=== PATIENT | male | born 1965 | race African-American/Black ===

== ENCOUNTER 2018-01-31 19:43 | Emergency (ER) | payer OTHER ==
[~2018-01-31] VITALS: Ht 180.3 cm; Wt 99.8 kg
[~2018-01-31 19:43] MED LIST: ALBUTEROL SULF8.5 GM INH; ASPIRIN EC325 MG ORAL; AZITHROMYCIN250 MG ORAL; BENAZEPRIL HCL10 MG PO; CHLORTHALIDONE25 MG PO; HYDROCODON-ACE1 EA15 ORAL; MECLIZINE HCL25 MG PO; NORCO 5-325 TA1 EACH ORAL; PREDNISONE20 MG ORAL; TYLENOL650 MG/20. ORAL; VALIUM2 MG ORAL; ZOCOR20 M1 ORAL
[2018-01-31 19:55] VITALS: BP 158/73
[2018-01-31] MEDS ORDERED: NORCO 5-325 TA1 EACH ORAL (21:04)
--- NOTE | 2018-01-31 21:08 | Emergency Room Report ---
History of Present Illness General Chief Complaint: Upper Extremity Injury Source: Patient Present Illness HPI Patient presents emergency department today complaining of a abrasion to left upper extremity. Differential considerations include laceration, abrasion, deep tissue injury. Patient exam is consistent with the patient. This does not require repair. Patient's wound was dressed. Patient was given a tetanus update. Given that patient did not hit his head did not show any radiographic studies are indicated this time. Close outpatient followup. Recommended wound care changes.Patient is advised to follow up with primary doctor in 2-3 days and return the emergency room for any worsening symptoms and as needed. Allergies: Coded Allergies: No Known Allergies (Unverified , 12/19/12) Patient History Past Medical History: HTN, asthma Past Surgical History: none Pertinent Family History: none Social History: Denies: smoking, alcohol use, drug use Reviewed Nursing Documentation: PMH: Agreed, PSxH: Agreed Nursing Documentation-PMH Hx Hypertension: Yes Hx Asthma: Yes Hx Cancer: No Hx Gastrointestinal Problems: No Hx Dialysis: No - kidney sx (30 % removed) Hx Neurological Problems: No Review of Systems All Other Systems: negative except mentioned in HPI Physical Exam Vital Signs Date Time Temp Pulse Resp B/P (MAP) Pulse Ox O2 Delivery O2 Flow Rate FiO2 01/31/18 19:53 99.0 72 18 158/73 99 Room Air 99.0 Sp02 EP Interpretation: reviewed, normal General Appearance: normal inspection, well appearing, no apparent distress, alert Head: atraumatic Eyes: bilateral eye normal inspection ENT: normal ENT inspection, hearing grossly normal, normal voice Neck: normal inspection, full range of motion, supple, no bony tend Respiratory: normal inspection, lungs clear, normal breath sounds, no respiratory distress, no retraction, no wheezing Cardiovascular #1: regular rate, rhythm, no edema Gastrointestinal: normal inspection, normal bowel sounds, non tender, soft, no guarding, no hernia Genitourinary: no CVA tenderness Musculoskeletal: back normal, swelling - left elbow Neurologic: normal inspection, alert, responsive, speech normal Psychiatric: normal inspection, judgement/insight normal, mood/affect normal Skin: normal inspection, normal color, no rash Medical Decision Making Diagnostic Impression: Primary Impression: Bursitis ER Course Patient returns emergency department today complaining left elbow pain. Differential considerations include fracture dislocation strain versus bursitis. Patient exam is consistent with bursitis. At the patient's insistence I tried aspirated the bursa but was unsuccessful. Procedure note: Patient's left elbow was prepped in a sterile manner. Using an 18-gauge needle inserted into the area of maximal swelling and try to aspirate the bursa. I wasn't able to aspirate any fluid. Therefore further attempts were abandoned the needle was removed the wound was dressed. Patient tolerated procedure without difficulty. There is no complications associated procedure. Given that there is no evidence of any fluid in the first I feel the patient's personal was likely just irritated with evidence of inflammation. Patient states that he cannot take anti-inflammatory. This is elbow and given pain medications. Procedure note: Jose bandage application. Jose bandage was applied to patient's left elbow. Adequate a splint patient's left elbow. There is no competitions associated procedure patient procedure well difficulty. Patient was neurovascular intact after application Jose bandage. Patient was given information about bursitis I recommend return emergency room for any worsening symptoms and as needed. Last Vital Signs Date Time Temp Pulse Resp B/P (MAP) Pulse Ox O2 Delivery O2 Flow Rate FiO2 01/31/18 19:55 99.0 72 18 158/73 99 Room Air 99.0 Status: improved Disposition: HOME, SELF-CARE Condition: Stable ABIMBOLA SERRANO M.D. Jan 31, 2018 21:08
[2018-01-31] MEDS ORDERED: oxyCODONE HCL/Acetaminophen 5/325mg ORAL ONE (21:15)
[2018-01-31 21:20] VITALS: BP 158/73
== END 2018-01-31 21:20 | disposition home or self-care (01) ==
LOC: EMR 20:15
DX: M70.32 Other bursitis of elbow, left elbow (principal); J45.909 Unspecified asthma, uncomplicated; I10 Essential (primary) hypertension
CPT/HCPCS: 10060; 29260; 99283

== ENCOUNTER 2018-03-01 21:19 | Emergency (ER) | payer OTHER ==
[~2018-03-01] VITALS: Ht 180.3 cm; Wt 104.3 kg
[2018-03-01 21:30] VITALS: BP 152/74
[2018-03-01] MEDS ORDERED: IBUPROFEN600 MG ORAL (21:41)
[2018-03-01] MEDS ORDERED: HYDROCODON-ACE1 EA15 ORAL (21:41)
--- NOTE | 2018-03-01 21:41 | Emergency Room Report ---
History of Present Illness General Chief Complaint: Pain Source: Patient, Medical Record Present Illness HPI Is a 52-year-old male with history of arthritis. He had problem with his left knee before that require drainage. He presents with right knee pain and swelling for last 3 days but no trauma. No nausea no vomiting. No fever or chills. He thought that he may have gout. Better with crutches. Better with [place]. Pain is 9 out of 10. Allergies: Coded Allergies: No Known Allergies (Unverified , 12/19/12) Patient History Past Medical History: see triage record, old chart reviewed Past Surgical History: none Pertinent Family History: none Social History: Denies: smoking Immunizations: other Reviewed Nursing Documentation: PMH: Agreed; PSxH: Agreed Nursing Documentation-PMH Hx Hypertension: Yes Hx Asthma: Yes Hx Cancer: No Hx Gastrointestinal Problems: No Hx Dialysis: No - kidney sx (30 % removed) Hx Neurological Problems: No Review of Systems Eye: Denies: eye pain, blurred vision ENT: Denies: ear pain, nose congestion, throat swelling Respiratory: Denies: cough, shortness of breath Cardiovascular: Denies: chest pain, palpitations Gastrointestinal: Denies: abdominal pain, diarrhea, nausea, vomiting Musculoskeletal: Reports: joint pain, joint swelling; Denies: back pain Skin: Denies: rash Neurological: Denies: headache, numbness Endocrine: Denies: increased thirst, increased urine Hematologic/Lymphatic: Denies: easy bruising All Other Systems: negative except mentioned in HPI Physical Exam Vital Signs Date Time Temp Pulse Resp B/P (MAP) Pulse Ox O2 Delivery O2 Flow Rate FiO2 03/01/18 21:23 98.2 90 18 152/74 96 Room Air 98.2 vitals with high blood pressure Sp02 EP Interpretation: reviewed, normal General Appearance: well appearing, no apparent distress, alert Head: normocephalic, atraumatic Eyes: bilateral eye PERRL, bilateral eye EOMI ENT: hearing grossly normal, normal pharynx Neck: full range of motion, supple, no meningismus Respiratory: chest non-tender, lungs clear, normal breath sounds Cardiovascular #1: regular rate, rhythm, no murmur Gastrointestinal: normal bowel sounds, non tender, no mass, no organomegaly, no bruit, non-distended Musculoskeletal: back normal, swelling - Right knee with effusion and tenderness along the collateral ligaments area knee is stable. Sensation normal. No warmth or redness. Psychiatric: mood/affect normal Skin: warm/dry Procedures Splinting Splinting : Consent: Verbal Location: Right knee Pre-Made Type: TRISTAN wrap Pre-Proc Neuro Vasc Exam: normal Post-Proc Neuro Vasc Exam: normal Patient Tolerated: Well Complications: None Medical Decision Making Diagnostic Impression: Primary Impression: Right knee DJD Qualified Codes: M17.11 - Unilateral primary osteoarthritis, right knee Additional Impression: Effusion of knee joint right ER Course Patient with effusion of the right knee. This is most likely secondary to osteoarthritis/degenerative changes. There is no warmth or redness to indicate an infectious or inflammatory causes. I doubt this is gout or septic joint. We 'll discharge home. No trauma to warrant x-rays. If continue he may need an MRI. Last Vital Signs Date Time Temp Pulse Resp B/P (MAP) Pulse Ox O2 Delivery O2 Flow Rate FiO2 03/01/18 21:23 98.2 90 18 152/74 96 Room Air 98.2 Status: improved Disposition: HOME, SELF-CARE Condition: Stable Scripts Ibuprofen* (MOTRIN*) 600 Mg Tablet 600 MG ORAL THREE TIMES A DAY, #30 TAB 0 Refills Prov: PRITESH LOWE M.D. 03/01/18 Hydrocodone/Acetaminophen 5-325* (HYDROCODONE/ACETAMINOPHEN 5-325*) 1 Each Tablet 1 TAB ORAL Q6H PRN for For Pain, #30 TAB 0 Refills Prov: PRITESH LOWE M.D. 03/01/18 Additional Instructions: Follow-up with your doctor in 7 days. You may benefit from referral to see orthopedic doctor. You may need to have your knee joint fluid aspirated. Return if symptom worsen. PRITESH LOWE M.D. Mar 01, 2018 21:41
[2018-03-01 21:45] VITALS: BP 152/74
== END 2018-03-01 21:45 | disposition home or self-care (01) ==
LOC: EMR 21:45
DX: M17.11 Unilateral primary osteoarthritis, right knee (principal)
CPT/HCPCS: 99284